=== PATIENT | male | born 1975 | race Caucasian/White ===

== ENCOUNTER 2018-11-29 21:01 | Inpatient (IN) | payer MEDICAID ==
[~2018-11-29] VITALS: Ht 185.4 cm; Wt 70.1 kg
[2018-12-03 06:58] VITALS: BP 112/75
== END 2018-12-03 10:36 | disposition left against medical advice (07) | DRG 871 ==
LOC: ED 23:32 → EDIP 11-30 00:03 → 5SO 11-30 01:22 → 4WST 11-30 14:59
PROVIDERS: ADMIT Internal Medicine; ATTEND Internal Medicine
DX: A41.9 Sepsis, unspecified organism (principal); J15.9 Unspecified bacterial pneumonia; J90 Pleural effusion, not elsewhere classified; Z53.21 Procedure and treatment not carried out due to patient leaving prior to being seen by health care provider; E87.6 Hypokalemia; F17.210 Nicotine dependence, cigarettes, uncomplicated; I44.1 Atrioventricular block, second degree; R73.9 Hyperglycemia, unspecified; R94.5 Abnormal results of liver function studies; Z87.01 Personal history of pneumonia (recurrent); Z79.899 Other long term (current) drug therapy
CPT/HCPCS: 36415; 71046; 71260; 76705; 80048; 80053; 80307; 82040; 83605; 84145; 84484; 85025; 86038; 86701; 86702; 86704; 86706; 86708; 86803; 87040; 87340; 87389; 93005; 93306; 96365; 96368; 99285; G0378; J0456; J0696; J1650; J1956; Q9967; J0295; J7030; J7050